=== PATIENT | female | born 1985 | race Caucasian/White ===

== ENCOUNTER 2023-02-20 16:02 | Emergency (ER) | payer OTHER ==
[~2023-02-20] VITALS: Ht 170.2 cm; Wt 77.3 kg
[2023-02-20 16:30] VITALS: BP 139/79; PULSE 86; RESP 16; O2SAT 96
[2023-02-20] MEDS ORDERED: IBUPROFEN 800 MG TAB PO ONE (16:45)
[2023-02-20 16:54] VITALS: TEMP 98.2
== END 2023-02-20 17:04 | disposition home or self-care (01) ==
LOC: ER 16:02
DX: S69.91XA Unspecified injury of right wrist, hand and finger(s), initial encounter (principal); W22.8XXA Striking against or struck by other objects, initial encounter; Y93.89 Activity, other specified; Y92.89 Other specified places as the place of occurrence of the external cause; Y99.8 Other external cause status